=== PATIENT | male | born 1995 | race Two or more races ===

== ENCOUNTER 2017-07-06 12:03 | Emergency (ER) | payer SELFPAY ==
[2017-07-06 12:30] VITALS: BP 101/72; PULSE 70; TEMP 97.8; BMI 22.0
--- NOTE | 2017-07-06 14:50 | PDOC ---
History of Present Illness - General History Source: Patient Exam Limitations: No Limitations - History of Present Illness Initial Comments: 07/06/17 15:32 Pt is a 22 yo M with a PMHx of Asthma who presents to the ED with worsening epigastric pain for the past 2 weeks. Patient reports his mosley initially began after eating a aruna cheesesteak two weeks ago. Patient reports gradual onset of intermittent epigastric pain with associated nausea, vomiting and melena. Patient took pepto bismol, gilda seltzer and drank teas with minimal resolvement of his symptoms. Patient states the pain returned last night and progressively worsened. Patient presents to the ED for further evaluation. Patient denies any heavy lifting, strenuous exercise. Patient denies any fever, chills. Patient denies any dysuria, frequency, urgency, hematuria, penile discharge. Upon evaluation, patients vital signs are within normal limits. 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 Was self-limited. States bowel movements have been normal, formed, with no evidence of blackness tarriness or bright red blood. States sister and mother both suffered from gastritis and ulcer disease, also both of them had ectomy's for acute appendicitis. States enjoys spicy food however is not drink alcohol, smoke, or drink caffeinated beverages. 07/06/17 16:41 Timing/Duration: reports: getting worse, intermittent Activities at Onset: reports: none <Chelsea Nicholson - Last Filed: 07/06/17 16:45> - General Chief Complaint: Pain Stated Complaint: ABD PAIN Time Seen by Provider: 07/06/17 14:49 Past History <Dominique Mehta - Last Filed: 07/06/17 15:33> - Travel Traveled outside of the country in the last 30 days: No Close contact w/someone who was outside of country & ill: No - Past Medical History COPD: No - Suicide/Smoking/Psychosocial Hx Smoking History: Never smoked Hx Alcohol Use: No Drug/Substance Use Hx: No <Chelsea Nicholson - Last Filed: 07/06/17 16:45> - Past Medical History Allergies/Adverse Reactions: Allergies Allergy/AdvReac Type Severity Reaction Status Date / Time No Known Allergies Allergy Verified 07/06/17 12:25 Home Medications: Ambulatory Orders Omeprazole 20 mg PO DAILY #30 capsule. 07/06/17 Review of Systems - Review of Systems Able to Perform ROS?: Yes Comments:: 07/06/17 15:32 CONSTITUTIONAL: Absent: fever, no chills, no fatigue EYES: Absent: visual changes ENT: Absent: ear pain, no sore throat CARDIOVASCULAR: Absent: chest pain, no palpitations RESPIRATORY: Absent: cough, no SOB GI: + epigastric abdominal pain, nausea, vomiting, melena Absent: , no constipation, no diarrhea GENITOURINARY: Absent: dysuria, no frequency, no hematuria MUSCULOSKELETAL: Absent: back pain, no arthralgia, no myalgia SKIN: Absent: rash NEURO: Absent: headache <Dominique Mehta - Last Filed: 07/06/17 15:33> *Physical Exam - Vital Signs Last Vital Signs Temp Pulse Resp BP Pulse Ox 97.8 F 70 18 101/72 99 07/06/17 12:26 07/06/17 12:26 07/06/17 12:26 07/06/17 12:26 07/06/17 12:26 - Physical Exam Comments: 07/06/17 15:32 GENERAL: Well-appearing, well-nourished. No apparent distress. HEENT: Normocephalic, atraumatic. PERRL, EOM intact. CARDIOVASCULAR: Normal S1, S2. Regular rate and rhythm. PULMONARY: Clear to auscultation bilaterally. ABDOMEN: Epigastric tenderness. +Normactive to hyperactive bowel sounds. No petrusions. No hernia. No rebound or guarding. Soft, non-distended. EXTREMITIES: Normal ROM in all four extremities. No gross deformities. SKIN: Warm, dry. No rash NEUROLOGICAL: No focal neurological deficits. <Dominique Mehta - Last Filed: 07/06/17 15:33> - Vital Signs Last Vital Signs Temp Pulse Resp BP Pulse Ox 97.8 F 70 18 101/72 99 07/06/17 12:26 07/06/17 12:26 07/06/17 12:26 07/06/17 12:26 07/06/17 12:26 - Physical Exam General Appearance: Yes: Nourished, Appropriately Dressed, Apparent Distress <Chelsea Nicholson - Last Filed: 07/06/17 16:45> ED Treatment Course - LABORATORY CBC & Chemistry Diagram: 07/06/17 15:21 07/06/17 15:21 <Chelsea Nicholson - Last Filed: 07/06/17 16:45> Medical Decision Making - Medical Decision Making 07/06/17 15:32 Chelsea Nicholson : The scribe's documentation has been prepared under my direction and personally reviewed by me in its entirety. I confirm that the note above accurately reflects all work, treatment, procedures, and medical decision making performed by me. <Dominique Mehta - Last Filed: 07/06/17 15:33> - Medical Decision Making 07/06/17 16:43 Laboratory work within normal limits, H&H stable, electrolytes normal. Urinalysis does not reveal any protein or abnormalities. Patient received 20 mg of IV Pepcid. States feels moderately better and understands need for follow-up with [facility] for further evaluation of gastritis and possible peptic ulcer disease. Given prescription for Nexium 20 mg daily, encouraged to drink lots of fluids and bland diet. <Chelsea Nicholson - Last Filed: 07/06/17 16:45> *DC/Admit/Observation/Transfer - Attestations Scribe Attestion: 07/06/17 15:33 Documentation prepared by Dominique Mehta, acting as medical equipment repair technician for Chelsea Bharat [employer] STRAIGHT[employer] <Dominique Mehta - Last Filed: 07/06/17 15:33> - Discharge Dispostion Admit: No <Chelsea Nicholson - Last Filed: 07/06/17 16:45> Diagnosis at time of Disposition: Gastritis Qualifiers: Gastritis type: unspecified gastritis Chronicity: unspecified Gastritis bleeding: presence of bleeding unspecified Qualified Code(s): K29.70 - Gastritis , unspecified, without bleeding; K29.70 - Gastritis, unspecified, without bleeding - Discharge Dispostion Disposition: HOME Condition at time of disposition: Stable - Referrals Referrals: Jaleel Addison MD [Staff Physician] - - Patient Instructions Printed Discharge Instructions: DI for Gastritis Additional Instructions: Rest, drink lots of fluids: Teas, water, soups Minal brinda, carbonated beverages for the bubbles May try peppermint teas Avoid heavy , spicy or fatty foods until symptoms have resolved Avoid contact with others until fevers and symptoms resolved Lots of handwashing and good hygiene Continue [id number] medications for symptomatic relief Tylenol for fever and pain Omeprazole daily as directed Antacids 3 times a day. Followup with private physician in one to 2 days and make appoitment with [facility] for further evaluation Return to emergency department for worsened symptoms, fevers, dehydration, recurrent bleeding from bowels - Post Discharge Activity Forms/Work/School Notes: Back to Work
[2017-07-06] MEDS ORDERED: FAMOTIDINE 20 MG/50 ML IVPB 50 ML IVPB ONE ×2 (15:14→15:27)
[2017-07-06 15:36] LABS: BASOPHIL 0.8 % (0-2.0); EOSINOPHIL 1.5 % (0-4.5); MCH 30.5 pg (25.7-33.7); MCHC 34.1 g/dl (32.0-35.9); MEAN CELL VOLUME 89.4 fl (80-96); MEAN PLT VOLUME 7.9 fl (7.5-11.1); NEUTROPHILS 64.6 % (42.8-82.8); PLATELET COUNT 293 K/MM3 (134-434); RDW 12.6 % (11.9-15.9); WHITE BLOOD COUNT 9.4 K/mm3 (4.0-10.0)
[2017-07-06 15:40] LABS: URINE APPEARANCE CLEAR; URINE BILIRUBIN NEGATIVE (NEGATIVE); URINE BLOOD NEGATIVE (NEGATIVE); URINE COLOR STRAW; URINE GLUCOSE (UA) NEGATIVE (NEGATIVE); URINE KETONE NEGATIVE (NEGATIVE); URINE NITRITE NEGATIVE (NEGATIVE); URINE PROTEIN NEGATIVE (NEGATIVE); URINE UROBILINOGEN NEGATIVE mg/dL (0.2-1.0)
[2017-07-06 16:01] LABS: ALBUMIN 4.1 g/dl (3.4-5.0); ANION GAP 8 (8-16); CALCIUM 8.6 mg/dL (8.5-10.1); CO2 27 mmol/L (21-32); CREATININE 0.8 mg/dL (0.7-1.3); GLUCOSE,RANDOM 81 mg/dL (74-106); SGPT/ALT 24 U/L (12-78)
[2017-07-06 16:03] LABS: ALK PHOS 98 U/L (45-117); BILIRUBIN,TOTAL 0.5 mg/dL (0.2-1.0)
[2017-07-06 16:08] LABS: SGOT/AST 20 U/L (15-37)
[2017-07-06 17:46] LABS: URINE LEUK ESTERASE Negative (NEGATIVE)
[2017-07-09 00:09] LABS: H.PYLORI AB IGA 24.2 units (0.0-8.9); H.PYLORI AB IGG 7.6 U/mL (0.0-0.8)
== END 2017-07-06 17:01 | disposition home or self-care (01) ==
LOC: JERFT 12:03 → JER 12:03 → JERFT 17:01
PROC: 3E033GC Introduction of Other Therapeutic Substance into Peripheral Vein, Percutaneous Approach (ICD-10-PCS; principal; 2017-07-06)
DX: K29.70 Gastritis, unspecified, without bleeding (principal)
CPT/HCPCS: 36415; 80053; 81003; 85025; 86677; 99281-25